=== PATIENT | female | born 1990 | race Hispanic/Latino ===

== ENCOUNTER 2017-02-15 18:43 | Inpatient (IN) | payer OTHER ==
[~2017-02-15 18:43] MED LIST: Docusate Sodium PO; IBUP800T28 PO; LABE100T4 PO; PREN1CAP15 PO; PROC25SU30 RC
[2017-02-15] MEDS ORDERED: Oxytocin 30 Units/500 mL LR Premix IV ONE (18:55)
[2017-02-15] MEDS ORDERED: Lactated Ringer's 1,000 ML IV PRN (19:09)
[2017-02-15] MEDS ORDERED: Carboprost 250 mCg/mL Inj IM PRN ×2 (19:10→19:15)
[2017-02-15] MEDS ORDERED: Oxytocin 10 Unit/mL Inj IM PRN ×2 (19:10→19:15)
[2017-02-15] MEDS ORDERED: Methylergonovine 0.2 mg/mL Inj IM PRN ×2 (19:10→19:15)
[2017-02-15] MEDS ORDERED: Hemorrhage Kit, Post Partum XX ONE ×2 (19:10→19:15)
[2017-02-15] MEDS ORDERED: Oxytocin 30 Units/500 mL LR 30 UNITS in IV Premix 1 EACH IV PRN ×2 (19:10→19:15)
[2017-02-15] MEDS ORDERED: Sodium Chloride LOK Flush 10 mL Syringe IVFLUSH PRN (19:10)
[2017-02-15] MEDS: Lactated Ringer's 1,000 ML IV SCH (19:14)
[2017-02-15] MEDS ORDERED: Benzocaine (Dermoplast) 20% 60 Gm Spray TOPICAL PRN (19:15)
[2017-02-15] MEDS ORDERED: LANOlin HPA 7 Gm Ointment TOPICAL PRN (19:15)
[2017-02-15] MEDS ORDERED: Witch Hazel-Glycerin Pads TOPICAL PRN (19:15)
[2017-02-15 19:18] LABS: BASOPHILS % (AUTO) 0.2 % (0-3); EOSINOPHILS % (AUTO) 0.4 % (0-5); MONOCYTES % (AUTO) 8.3 % (4-12); Mean Corpuscular Hemoglobin 31.2 pg (27.0-35.0); Mean Corpuscular Volume 92.9 fL (81-100); NEUTROPHILS % (AUTO) 61.4 % (40-74); Platelet Count 136 bil/L (150-400)
--- NOTE | 2017-02-15 19:52 | PCM.HPOB ---
Subjective Referring Provider: Admitting Physician: Ml Malin MD Primary Care Physician: Meghan Potts MD Attending Physician: Ml Malin MD Chief Complaint active labor History of Present History of Present Illness Ms. Yost is a 27 y/o woman at 36 weeks 6 days who presents to the [facility] ([facility]) in active second stage of labor via EMS. CLIFFORD 2016 based on LMP. Her was complicated by gestational hypertension and poor care compliance. She was fully dilated and +2 position. She was in significant pain secondary to contractions. She started pushing and delivered a male. She was seen at the [facility] twice for bleeding, and she was started on labetalol 100 mg twice per day for elevated blood pressure a week ago. Placental edge was 2.1 cm from os on an ultrasound, but patient was seen by MFM. Their assessment was that there was no sign of previa and right kidney had no abnormality on 12/12/16. She had poor care compliance and was only seen 4 times. She did not complete the glucose tolerance test or second CBC. GBS screening and a repeat gonorrhea and chlamydia swab was done today in the office. initial labs: blood type O positive, antibody screen negative, Pap smear negative, varicella immune, rubella immune, RPR nonreactive, HBsAg negative, HIV negative, HgbA1c 5.1%, TSH 1.320, hepatitis C negative, and chlamydia and gonorrhea negative. Portion of historical information obtained from patient's medical records. OB History: , Para (2), Term (1), Pre-term (1), (0), Living (2) Obstetrical Complications: Gestational Hypertension, Other (poor compliance) Past Medical History Obstetrical History: Two prior NSVDs First child: 2008, 35 weeks, 4 lb 9oz induction of labor for IUGR Second child: 2013, full term, 6 lb Gynecologic History: No known history of STIs Medical History: Thyroid dysfunction Asthma Seasonal allergies Surgical History: No significant Hx Tobacco Use: No Hx Alcohol Use: No Hx Substance Use: No Review of Systems ROS Unable to obtain due to patient in active labor Medications Home medications vitamin Allergy Coded Allergies: No Known Allergies (Verified , 09/05/16) Exam Vital Signs Blood pressure 132/86, HR 73 bpm Constitutional: Well-developed, Well-nourished HEENT: Atraumatic, EOMI, Scleral Anicteric, Mucous Membr Moist/[place] Abdomen: Gravid Neurological/Psychiatric: Alert, Oriented X3, Cooperative, Moderate Distress Neuro: Grossly Neurologically Intact Additional Information Cervix fully dilated, position +2 Labs/Diagnostics Labs Item Value Date Time White Blood Count 12.4 th/mm3 H 02/15/171899 Hemoglobin 13.7 g/dL 02/15/171899 Hematocrit 40.8 % 02/15/171899 Maternal Blood Type: O (positive) Group B Strep Results: Sent, awaiting results Rubella: Immune OB Intrapartum Assessment/Plan Assessment 1. Ms. Yost is a 27 y/o now P3 woman at 36 weeks 6 days who presents to the [facility] ([facility]) in active labor via EMS. Her was complicated by gestational hypertension and poor care compliance. -Patient had a precipitous labor and had a upon presenting to the [facility] -Patient delivered a male with Apgars 9 and 9 weighing 2721 g -UDS ordered -Social work consult ordered -Continue routine post- care 2. Gestational hypertension -Continue to monitor blood pressure -Will resume labetalol 100 mg BID if needed -PID labs ordered Attending Statement The patient was seen and examined together with Dr. Ema Tay DO on 2016 and I agree with the history, exam and plan as outlined in the note above. Ema Tay DO Feb 15, 2017 19:21 Ml Malin MD Feb 15, 2017 22:57
--- NOTE | 2017-02-15 20:07 | PCM.OBVAG ---
Vaginal Delivery Date of Service Feb 15, 2017 Pre Operative Diagnosis Pre Operative Diagnosis 1. 27 y/o woman at 36 weeks 6 days gestation 2. Precipitous labor 3. Gestational hypertension Post Operative Diagnosis Post Operative Diagnosis 1. 27 y/o woman at 36 weeks 6 days gestation 2. Precipitous labor 3. 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 Her GBS status is unknown and there was not adequate time to administer penicillin prior to delivery. She was completely dilated and position was +2. Neonatology was called and was present for the . She began pushing. FHR was bradycardic. Procedure: A sterile drape was placed under the patient's buttocks and with expulsive efforts, she delivered head over an intact perineum. No nuchal cord. The rest of the body was delivered. The baby was placed on maternal abdomen, skin to skin. Warming and stimulating maneuvers were applied. After a minute, the cord was clamped, and cut. The was delivered at 18:57. The placenta then delivered spontaneously intact at 19:00 with a three vessel cord. Uterus firmed with manual external massage. The perineum was examined and there were no lacerations. Sponge and instrument counts were correct x2 at the close of the procedure. The patient and tolerated the procedure well and pt is stable in her room. Blood Loss & Administration Estimated Blood Loss: 200 Blood Admin during procedure: No Post Procedure Plan Post Procedure Plan Continue routine care Post delivery Condition: Mom stable VTE Prophylaxis: SCDs Attending Statement I was present for the entire procedure and assisted with the delivery and I agree with the above documentation. Ema Tay DO Feb 15, 2017 20:07 Ml Malin MD Feb 15, 2017 22:56
[2017-02-15 22:28] LABS: APPEARANCE,URINE CLOUDY (CLEAR,HAZY); COLOR,URINE BLOODY (YELLOW)
[2017-02-15 22:29] LABS: OCCULT BLOOD,URINE LARGE (NEGATIVE); UROBILINOGEN,URINE NORMAL (NORMAL)
[2017-02-16] MEDS: Lactated Ringer's 1,000 ML IV SCH ×3 (03:14→19:14)
--- NOTE | 2017-02-16 06:24 | PCM.PNOBPP ---
Subjective Date of Service Feb 16, 2017 Visit History Ms. Yost is a 27 y/o woman at 36 weeks 6 days who presents to the [facility] ([facility]) in active second stage of labor via EMS. CLIFFORD 2016 based on LMP. Her was complicated by gestational hypertension and poor care compliance. She was fully dilated and +2 position. She was in significant pain secondary to contractions. She started pushing and delivered a male. She was seen at the [facility] twice for bleeding, and she was started on labetalol 100 mg twice per day for elevated blood pressure a week ago. Placental edge was 2.1 cm from os on an ultrasound, but patient was seen by M. Their assessment was that there was no sign of previa and right kidney had no abnormality on 12/12/16. She had poor care compliance and was only seen 4 times. She did not complete the glucose tolerance test or second CBC. GBS screening and a repeat gonorrhea and chlamydia swab was done today in the office. initial labs: blood type O positive, antibody screen negative, Pap smear negative, varicella immune, rubella immune, RPR nonreactive, HBsAg negative, HIV negative, HgbA1c 5.1%, TSH 1.320, hepatitis C negative, and chlamydia and gonorrhea negative. Subjective Patient has no complaints today. She is ambulating, voiding, tolerating PO. Her lochia is normal and she has no pain. She is planning on breast feeding and having a Mirena IUD for contraception . Lochia: Normal Pain Management: PO pain meds Gastrointestinal: Good Appetite, No N/V Postop Activity: Ambulating Independently Group B Strep Results: Sent, awaiting results Rubella: Immune Blood Type: O (positive) RH Type: Positive Labs Laboratory Tests 02/15/17 19:00: White Blood Count 12.4, Red Blood Count 4.39, Hemoglobin 13.7, Hematocrit 40.8, Mean Corpuscular Volume 92.9, Mean Corpuscular Hemoglobin 31.2, Mean Corpuscular Hemoglobin Concent 33.6, Red Cell Distribution Width 14.3, Platelet Count 136, Neutrophils (%) (Auto) 61.4, Lymphocytes (%) (Auto) 29.3, Monocytes ( %) (Auto) 8.3, Eosinophils (%) (Auto) 0.4, Basophils (%) (Auto) 0.2 Exam Vital Signs Vital Signs: VS reviewed, stable Exam Abdomen: Fundus firm Perineum: Intact Extremities: No cords, No edema Heart: Exam Unremarkable General: Alert, Oriented X3, Cooperative, No Acute Distress OB Post Assessment/Plan Problems: (1) care and examination immediately after delivery Plan: 1. Continue routine pp care. 2. Urine Tox Screen was negative. Plan for social work consult today given limited care. Status: Acute ICD Code: Z39.0 Post plan: Continue routine post care Ml Malin MD Feb 16, 2017 06:24
[2017-02-16] MEDS: Ascorbic Acid 500 mg Tablet PO SCH ×2 (07:43→17:47)
--- NOTE | 2017-02-16 09:36 | NUR ---
received marguerite. 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
--- NOTE | 2017-02-16 14:03 | NUR ---
[facility] social work assessment 02/16/17 MOB and FOB name: Rod Sandysus Young Baby's name: Khris Young Joel for LIME VAT TENDER consult: GEORGI had sporadic care and presented to [facility] in labor when she planned to deliver at [facility]. Current living situation: GEORGI lives at home with GLADIS and her two previous children, Kj Vasquez and Ana Neil. 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 Previous children: GEORGI reports two previous children, Kj and Ana, aged 7 and 3, respectively. GEORGI denies any previous CPS involvment and states she has fully custody. Substance abuse history: GEORGI denies any current or previous drug or alcohol use. UDS was negative upon admission. Mental health history: GEORGI denies any current or previous mental health concerns as well as denies any symptoms after her previous two children. Source of income/state assistance:GEORGI receives SSI due to her 7 year old sons disability and therefore does not work. 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 GEORGI plans to enroll with WIC but not TANF. DV/abuse history: GEORGI denies current and previous DV and states she is safe in her home presently. Supports: GEORGI reports that GLADIS is quite supportive and maternal grandmother and aunt are both local and supportive of GEORGI. Assessment/disposition: LIME VAT TENDER referral received due to poor care. LIME VAT TENDER addressed this directly, to which GEORGI reports that she initially sought care and was referred to for further assessment for a condition involving her placenta but it was determined there were no abnormalities. For GEORGI, this meant that it was not important to continue regular follow up and therefore she had sporadic care. GEORGI reports that she had an appointment yesterday, realized she was in labor and while en route to [facility] her water broke, prompting call to 911 to transport to [facility], however she reports she was declined there and rerouted to [facility]. RN has no additional concerns in care for GEORGI nor does LIME VAT TENDER. If additional needs or concerns arise LIME VAT TENDER will reassess. MIN Bautista Addendum: 02/16/17 at 1416 by JOSIE MURRIETA SS Amended: Links added.
[2017-02-17] MEDS: Lactated Ringer's 1,000 ML IV SCH (03:14)
[2017-02-17] MEDS: Ascorbic Acid 500 mg Tablet PO SCH (08:08)
--- NOTE | 2017-02-17 12:36 | PCM.DIMED ---
Discharge Instructions Date of Service Feb 17, 2017 Dates of Hospitalization Feb 15, 2017 at 18:45 Diet No restrictions Activity No restrictions Call your provider Fever or Chills, Shortness of breath, Bleeding, Chest pain, Vomitting, Excessive diarrhea Patient Instructions Follow-up with PCP in: 6 weeks Jarret Conklin MD Feb 17, 2017 12:36
[2017-02-17] MEDS ORDERED: HYDR-4003 PO (12:40)
[2017-02-17] MEDS ORDERED: IBUP800T28 PO (12:40)
[2017-02-17] MEDS ORDERED: FERR-74 PO (12:40)
[2017-02-17] MEDS ORDERED: Docusate Sodium PO (12:40)
[2017-02-17 12:42] VITALS: BP 112/72; PULSE 75; RESP 18
--- NOTE | 2017-02-17 14:22 | DIS ---
[address] [address] DISCHARGE SUMMARY PATIENT: SPIKE MCDANIEL : 1990 MR#: [id number] ADMIT: 02/15/2017 JOB ID: [id number] DIS: ADMITTING DIAGNOSIS: A 27-year-old, 3, para 2, at 36 weeks and 6 days, in precipitous labor. DISCHARGE DIAGNOSES: 1. Status post spontaneous vaginal delivery at 36 weeks and 6 days. 2. Precipitous labor. The patient is a 27-year-old, 3, para 3 now, who presented to Labor and Delivery in the evening of February 15, 2017, in the second stage of labor. The patient was fully dilated. Group B strep culture was unknown. She had poor care. There was no time to administer penicillin prior to delivery. She underwent spontaneous vaginal delivery at around 7 p.m. Delivered male with Apgars 9 at one minute and 9 at five minutes. Weight 2721 g. Patient had intact perineum after delivery, estimated blood loss was 200 mL, delivery was rapid and uncomplicated. On day one, she was doing well, was afebrile. Did not breast feed, preferred bottle-feeding. Was ambulating, tolerating regular food well. There was no abnormal discharge or abnormal uterine bleeding. The fundus was firm. Social Work consult was obtained due to limited care. On day two, February 17, 2017, care was uncomplicated. Vitals were stable. Temperature 36.6, pulse 80, blood pressure 118/68. The fundus was firm. The perineum was intact. There was no vaginal bleeding. No abnormal vaginal discharge. The patient was doing well. Has not had any complaints. labs came back showing stable hemoglobin of 11.3, hematocrit 34.2, platelet count 118. The patient was discharged home on day two, February 17, 2017, in stable condition with all discharge criteria met. She received discharge medications, includin. Motrin 600 mg p.o. t.i.d. p.r.n. 2. Vicodin 5/325 mg p.o. t.i.d. p.r.n. for breakthrough pain. 3. Ferrous sulfate 325 mg p.o. daily. 4. Colace 100 mg p.o. b.i.d. Followup visit in OB Clinic is scheduled in six weeks.
[2017-02-17] MEDS ORDERED: SERT50TA9 PO (15:40)
[2017-02-17] MEDS ORDERED: LORA1TAB PO (15:44)
--- NOTE | 2017-02-19 15:23 | PATH ---
SURGICAL PATHOLOGY Attending Physician:Ml Malin, CASE STATUS: Signed Out PATIENT NAME: SPIKE MCDANIEL PID: [id number] : 1990 DATE COLLECTED:02/15/2017 00:00 SPECIMEN: Placenta CLINICAL HISTORY: 1. PLACENTA 36 WEEKS FINAL DIAGNOSIS: 1.PLACENTA WITH UMBILICAL CORD AND MEMBRANES: 1. PLACENTA: 401 GRAMS, WHICH IS APPROXIMATELY THE 30TH PERCENTILE FOR 36 WEEKS 6 DAYS GESTATION. NEGATIVE FOR EVIDENCE OF INFARCTION. NEGATIVE FOR SIGNIFICANT INFLAMMATION. NEGATIVE FOR SIGNIFICANT VASCULAR LESIONS. 2. UMBILICAL CORD: 17.6 CM IN LENGTH WITH THREE NORMAL BLOOD VESSELS. CORD IS ATTACHED 4.2 CM FROM THE EDGE OF THE PLACENTA. NEGATIVE FOR SIGNIFICANT INFLAMMATION. 3. MEMBRANES: RUPTURED 4.5 CM FROM THE FREE PLACENTAL EDGE. NEGATIVE FOR SIGNIFICANT INFLAMMATION. ICD10 code O09.3 GROSS DESCRIPTION: The specimen is received in formalin, labeled with the patient's name and consists of an intact placenta and includes placental disc (401 g, 20.5 x 15.5 x 2.2 cm), umbilical cord (length-17.6 cm, diameter-0.9 x 0.9 cm) and membranes. The membranes are ruptured 4.5 cm from the free edge of the placenta and are semi-translucent. The umbilical cord is attached 4.2 cm from the edge of the placenta and contains 3 vessels. The surface is smooth and shiny with no evidence of meconium. The maternal surface is dark maroon with normal cotyledon formation. The placental disc is spongy with no hematomas, infarcts, nodules, masses, or lesions. Section code: (A) edge of placenta with membranes; (B) umbilical cord; (C-F) placenta, 4 full thickness sections. 02/17/17 JM MICRO DESCRIPTION: See diagnosis. ICD-9 CODES: CPT CODES: 1: 45482 Electronically Signed Out Jefry Godinez MD [facility]ly [facility] [address], [place] [address] Technical component performed at [facility], [facility] [address], [place], [address]
== END 2017-02-17 17:48 | disposition home or self-care (01) | DRG 775 ==
LOC: FBCO 18:43 → FBC 18:45
PROVIDERS: ADMIT Obstetrics & Gynecology; ATTEND Obstetrics & Gynecology
PROC: 10E0XZZ Delivery of Products of Conception, External Approach (ICD-10-PCS; principal; 2017-02-15)
DX: O62.3 Precipitate labor (principal); O13.3 Gestational [pregnancy-induced] hypertension without significant proteinuria, third trimester; O09.33 Supervision of pregnancy with insufficient antenatal care, third trimester; Z37.0 Single live birth; Z3A.36 36 weeks gestation of pregnancy